=== PATIENT | male | born 1995 | race African-American/Black ===

== ENCOUNTER 2016-12-21 09:18 | Emergency (ER) | payer OTHER ==
[~2016-12-21] VITALS: Ht 157.5 cm; Wt 63.7 kg
[2016-12-21 10:58] LABS: PLATELET COUNT 235 K/uL (142-355)
== END 2016-12-21 11:40 | disposition home or self-care (01) ==
LOC: ED 09:18
DX: J18.9 Pneumonia, unspecified organism (principal)
CPT/HCPCS: 85027; 87081; 87804; 87880; 96372; 99283; J0696